=== PATIENT | female | born 1955 | race Caucasian/White ===

== ENCOUNTER 2020-09-23 07:03 | Observation (INO) | payer MEDICARE, OTHER ==
[2020-09-23] MEDS ORDERED: Sodium Chloride 0.9% 1000 ML 1,000 ML IV STA (07:43)
[2020-09-23] MEDS ORDERED: Zofran 4 MG/2 ML VIAL IV ONE (07:43)
--- NOTE | 2020-09-23 07:54 | ERPHSYRPT ---
- History of Present Illness Time Seen by Provider: 09/23/20 07:30 Historian: patient, family Exam Limitations: no limitations Patient Subjective Stated Complaint: Pt has episodes of hyperemesis and has now been vomiting for the past 3-4 days Triage Nursing Assessment: Pt brought to the ED by her , hypertensive, denies pain, pulses normal, abdomen non tender, doesn't appear to be in any distress Physician History: This is a 65-year-old white female who has had episodes in the distant past intermittently of hyperemesis. She has known gastroesophageal reflux disease and a very small hiatal hernia that was diagnosed approximately 4 years ago. She is a patient of Dr. Butler. In the last 4 to 5 days the patient has had more frequent episodes of spontaneous vomiting. She has a very low level of nausea. She does have Zofran tablets but these are not helping her vomiting. She has no pain. There is a "tickle" in her throat this seems to suddenly bring up a large amount of vomiting. She is feeling weak. In addition, there is associated confusion. She has never had this type of scenario. She has no chest pain. He is not short of breath. She has never had an upper endoscopy performed in the past. She is never seen a medical dir. She does have some burning with these vomiting episodes but not every time. Patient sleeps with 2 pillows under her head. She has not been able to sleep well in the last several days because that these episodes are keeping her up at night. She denies fevers. She denies diarrhea. Patient was seen by her primary care physician the day after her symptoms began. She was started on Norvasc, steroid pack and losartan. She was told that the tickle in her throat may be due to sinus drainage. She also saw Dr. Anderson, a lower school music teacher out of [facility]. Patient is a daily smoker of tobacco Timing/Duration: day(s) (4 to 5 days) Activities at Onset: none Quality: burning Abdominal Pain Onset Location: other (No pain) Pain Radiation: no radiation Severity of Pain-Max: none Severity of Pain-Current: none Associated Symptoms: nausea, vomiting, weakness Previous symptoms: same symptoms as today, recently seen Allergies/Adverse Reactions: No Known Drug Allergies Allergy (Verified 09/23/20 07:20) Home Medications: Amlodipine Besylate 5 mg [Norvasc 5 mg] 5 mg PO DAILY 09/23/20 [History] Ascorbic Acid [Vitamin C] 1,000 mg PO DAILY 09/23/20 [History] Atorvastatin Calcium [Lipitor 40Mg] 40 mg PO DAILY 09/23/20 [History] Desvenlafaxine Succinate [Pristiq ER] 100 mg PO DAILY 09/23/20 [History] Famotidine 20 mg [Pepcid 20 MG] 20 mg PO BID 09/23/20 [History] Levothyroxine Sodium [Synthroid] 25 mcg PO DAILY 09/23/20 [History] Losartan/Hydrochlorothiazide [Losartan-Hctz 100-25 mg Tab] 1 each PO DAILY 09/23/20 [History] Methylprednisolone Packet [Medrol Dosepack] 4 mg PO UD 09/23/20 [History] PANTOPRAZOLE 40 mg Tablet [Protonix 40MG Tablet] 40 mg PO QAM 09/23/20 [History] Temazepam [Restoril] 30 mg PO DAILY 09/23/20 [History] Zinc Gluconate [Zinc] 25 mg PO DAILY 09/23/20 [History] Travel Risk - International Travel Have you traveled outside of the country in past 3 weeks: No - Coronavirus Screening Are you exhibiting any of the following symptoms?: No Close contact with a COVID-19 positive Pt in past 14-21 Days: No - Vaccine Status Have you recieved a Covid-19 vaccination: Yes [employer]: [employer] - Vaccination Dates Date of 2cond Vaccination (if applicable): 06/26/2020 - Review of Systems Constitutional: Weakness Eyes: No Symptoms Ears, Nose, & Throat: No Symptoms Respiratory: No Symptoms Cardiac: No Symptoms Abdominal/Gastrointestinal: Nausea, Vomiting Genitourinary Symptoms: No Symptoms Musculoskeletal: No Symptoms Skin: No Symptoms Neurological: No Symptoms Psychological: No Symptoms Endocrine: No Symptoms Hematologic/Lymphatic: No Symptoms Immunological/Allergic: No Symptoms All Other Systems: Reviewed and Negative - Past Medical History Pertinent Past Medical History: Yes Cardiac History: High Cholesterol, Hypertension Endocrine Medical History: Hypothyroidism GI Medical History: GERD, Hernia Psycho-Social History: Depression - Past Surgical History Past Surgical History: Yes - Social History Smoking Status: Current every day smoker Exposure to second hand smoke: Yes Drug Use: none Patient Lives Alone: No - Female History Hx Now: No - Nursing Vital Signs Nursing Vital Signs: Initial Vital Signs Temperature 98.7 F 09/23/20 07:10 Pulse Rate 93 H 09/23/20 07:10 Blood Pressure 148/90 09/23/20 07:10 O2 Sat by Pulse Oximetry 97 09/23/20 07:10 Pain Scale Pain Intensity 0 - Physical Exam General Appearance: no apparent distress, alert, anxiety Eye Exam: PERRL/EOMI, eyes nml inspection Ears, Nose, Throat Exam: normal ENT inspection, moist mucous membranes Neck Exam: normal inspection, non-tender, supple, full range of motion Respiratory Exam: normal breath sounds, lungs clear, airway intact, No chest tenderness, No respiratory distress Cardiovascular Exam: regular rate/rhythm, normal heart sounds, normal peripheral pulses Gastrointestinal/Abdomen Exam: soft, normal bowel sounds, No tenderness Pelvic Exam: not done Rectal Exam: not done Back Exam: normal inspection, normal range of motion, No CVA tenderness, No vertebral tenderness Extremity Exam: normal inspection, normal range of motion, pelvis stable Neurologic Exam: alert, oriented x 3, cooperative, medical education coordinator II-XII nml as tested, normal mood/affect, nml cerebellar function, nml station & gait, sensation nml Skin Exam: normal color, warm, dry Lymphatic Exam: No adenopathy SpO2 Interpretation: normal SpO2: 97 O2 Delivery: Room Air - Course Nursing assessment & vital signs reviewed: Yes EKG Interpreted by Me: RATE (86), Sinus Rhythm, NORMAL AXIS, LAFB, NORMAL INTERVALS, NORMAL QRS, NORMAL ST-T, Other (No acute ischemic changes. No comparison EKG available) Ordered Tests: Active Orders 24 hr Category Date Time Status EKG-ER Only STAT Care 09/23/20 07:43 Active IV Insertion STAT Care 09/23/20 07:43 Active CHEST WITHOUT CONTRAST [CT] Stat Exams 09/23/20 09:05 Taken NECK WO CONTRAST [CT] Stat Exams 09/23/20 09:05 Taken AMYLASE Stat Lab 09/23/20 07:43 Completed CBC W DIFF Stat Lab 09/23/20 07:43 Completed CMP Stat Lab 09/23/20 07:43 Completed INFLUENZA A+B PANCHO Stat Lab 09/23/20 07:46 Completed LIPASE Stat Lab 09/23/20 07:43 Completed Lactic Acid Stat Lab 09/23/20 07:43 Completed Lactic Acid Stat Lab 09/23/20 10:04 Stop Req Manual Differential NC Stat Lab 09/23/20 07:43 Completed Ness Screen Stat Lab 09/23/20 Completed T4 (Thyroxine) Stat Lab 09/23/20 Completed TROPONIN Q3H Lab 09/23/20 07:45 Completed TROPONIN Q3H Lab 09/23/20 10:45 Ordered TROPONIN Q3H Lab 09/23/20 13:45 Ordered TROPONIN Q3H Lab 09/23/20 16:45 Ordered TROPONIN Q3H Lab 09/23/20 19:45 Ordered TSH [TSH, 3RD Generation] Stat Lab 09/23/20 07:46 Completed UA W/RFX UR CULTURE Stat Lab 09/23/20 07:53 Completed Transfer Order Routine Transfer 09/23/20 Ordered Medication Summary Discontinued Medications Generic Name Dose Route Start Last Admin Trade Name Freq PRN Reason Stop Dose Admin Sodium Chloride 1,000 mls @ 999 mls/hr 09/23/20 07:43 09/23/20 09:44 Sodium Chloride 0.9% 1000 Ml IV 09/23/20 08:43 Infused .Q1H1M STA Infusion Sodium Chloride Confirm 09/23/20 08:10 Sodium Chloride 0.9% 1000 Ml Administered 09/23/20 08:11 Dose 1,000 mls @ ud .ROUTE .STK-MED ONE Ondansetron HCl 4 mg 09/23/20 07:43 09/23/20 08:12 Zofran 4 Mg/2 Ml Vial IV 09/23/20 07:44 4 mg STAT ONE Administration Ondansetron HCl Confirm 09/23/20 08:10 Zofran 4 Mg/2 Ml Vial Administered 09/23/20 08:11 Dose 4 mg .ROUTE .STK-MED ONE Lab/Rad Data: Laboratory Result Diagrams 09/23/20 07:43 09/23/20 07:43 Laboratory Results 09/23/20 09/23/20 09/23/20 Range/Units Unknown Unknown 07:53 WBC (4.0-10.5) K/mm3 RBC (4.1-5.4) M/mm3 Hgb (12.0-16.0) gm/dl Hct (35-47) % MCV (78-100) fl MCH (26-32) pg MCHC (32-36) g/dl RDW (11.5-14.0) % Plt Count (150-450) K/mm3 MPV (7.5-11.0) fl Segmented Neutrophils (36.0-66.0) % Lymphocytes (Manual) (24-44) % Monocytes (Manual) (0.0-12.0) % Platelet Estimate (NORMAL) RBC Morphology Sodium (137-145) mmol/L Potassium (3.5-5.1) mmol/L Chloride (98-107) mmol/L Carbon Dioxide (22-30) mmol/L Anion Gap (5-15) MEQ/L BUN (7-17) mg/dL Creatinine (0.52-1.04) mg/dL Estimated GFR ML/MIN Glucose (74-106) mg/dL Lactic Acid (0.4-2.0) Calcium (8.4-10.2) mg/dL Total Bilirubin (0.2-1.3) mg/dL AST (14-36) U/L ALT (0-35) U/L Alkaline Phosphatase (38-126) U/L Troponin I (0.000-0.034) ng/mL Serum Total Protein (6.3-8.2) g/dL Albumin (3.5-5.0) g/dL Amylase (30-110) U/L Lipase (23-300) U/L Thyroxine (T4) 14.9 H (5.53-10.96) ug/dL TSH 3rd Generation (0.47-4.68) mIU/L Urine Color STRAW (YELLOW) Urine Appearance CLEAR (CLEAR) Urine pH 8.0 (5-6) Ur Specific Callaway 1.002 (1.005-1.025) Urine Protein NEGATIVE (Negative) Urine Ketones NEGATIVE (NEGATIVE) Urine Blood NEGATIVE (0-5) Hunter/ul Urine Nitrite NEGATIVE (NEGATIVE) Urine Bilirubin NEGATIVE (NEGATIVE) Urine Urobilinogen NEGATIVE (0-1) mg/dL Ur Leukocyte Esterase NEGATIVE (NEGATIVE) Urine WBC (Auto) NONE (0-5) /HPF Urine RBC (Auto) NONE (0-2) /HPF U Epithel Cells (Auto) RARE (FEW) /HPF Urine Bacteria (Auto) NONE SEEN (NEGATIVE) /HPF Urine Culture Reflexed NO (NO) Urine Glucose NEGATIVE (NEGATIVE) mg/dL Monoscreen NEGATIVE (Negative) Influenza Type A Ag (NEGATIVE) Influenza Type B Ag (NEGATIVE) 09/23/20 09/23/20 09/23/20 Range/Units 07:46 07:46 07:45 WBC (4.0-10.5) K/mm3 RBC (4.1-5.4) M/mm3 Hgb (12.0-16.0) gm/dl Hct (35-47) % MCV (78-100) fl MCH (26-32) pg MCHC (32-36) g/dl RDW (11.5-14.0) % Plt Count (150-450) K/mm3 MPV (7.5-11.0) fl Segmented Neutrophils (36.0-66.0) % Lymphocytes (Manual) (24-44) % Monocytes (Manual) (0.0-12.0) % Platelet Estimate (NORMAL) RBC Morphology Sodium (137-145) mmol/L Potassium (3.5-5.1) mmol/L Chloride (98-107) mmol/L Carbon Dioxide (22-30) mmol/L Anion Gap (5-15) MEQ/L BUN (7-17) mg/dL Creatinine (0.52-1.04) mg/dL Estimated GFR ML/MIN Glucose (74-106) mg/dL Lactic Acid (0.4-2.0) Calcium (8.4-10.2) mg/dL Total Bilirubin (0.2-1.3) mg/dL AST (14-36) U/L ALT (0-35) U/L Alkaline Phosphatase (38-126) U/L Troponin I < 0.012 (0.000-0.034) ng/mL Serum Total Protein (6.3-8.2) g/dL Albumin (3.5-5.0) g/dL Amylase (30-110) U/L Lipase (23-300) U/L Thyroxine (T4) (5.53-10.96) ug/dL TSH 3rd Generation 5.340 H (0.47-4.68) mIU/L Urine Color (YELLOW) Urine Appearance (CLEAR) Urine pH (5-6) Ur Specific Callaway (1.005-1.025) Urine Protein (Negative) Urine Ketones (NEGATIVE) Urine Blood (0-5) Hunter/ul Urine Nitrite (NEGATIVE) Urine Bilirubin (NEGATIVE) Urine Urobilinogen (0-1) mg/dL Ur Leukocyte Esterase (NEGATIVE) Urine WBC (Auto) (0-5) /HPF Urine RBC (Auto) (0-2) /HPF U Epithel Cells (Auto) (FEW) /HPF Urine Bacteria (Auto) (NEGATIVE) /HPF Urine Culture Reflexed (NO) Urine Glucose (NEGATIVE) mg/dL Monoscreen (Negative) Influenza Type A Ag NEGATIVE (NEGATIVE) Influenza Type B Ag NEGATIVE (NEGATIVE) 09/23/20 09/23/20 09/23/20 Range/Units 07:43 07:43 07:43 WBC 13.3 H (4.0-10.5) K/mm3 RBC 5.65 H (4.1-5.4) M/mm3 Hgb 16.2 H (12.0-16.0) gm/dl Hct 47.1 H (35-47) % MCV 83.4 (78-100) fl MCH 28.7 (26-32) pg MCHC 34.4 (32-36) g/dl RDW 12.9 (11.5-14.0) % Plt Count 463 H (150-450) K/mm3 MPV 8.9 (7.5-11.0) fl Segmented Neutrophils 76 H (36.0-66.0) % Lymphocytes (Manual) 18 L (24-44) % Monocytes (Manual) 6 (0.0-12.0) % Platelet Estimate NORMAL (NORMAL) RBC Morphology NORMAL Sodium 118 L* (137-145) mmol/L Potassium 3.6 (3.5-5.1) mmol/L Chloride 80 L (98-107) mmol/L Carbon Dioxide 26 (22-30) mmol/L Anion Gap 14.6 (5-15) MEQ/L BUN 4 L (7-17) mg/dL Creatinine 0.57 (0.52-1.04) mg/dL Estimated GFR > 60.0 ML/MIN Glucose 112 H (74-106) mg/dL Lactic Acid 1.9 (0.4-2.0) Calcium 9.4 (8.4-10.2) mg/dL Total Bilirubin 0.50 (0.2-1.3) mg/dL AST 41 H (14-36) U/L ALT 42 H (0-35) U/L Alkaline Phosphatase 156 H (38-126) U/L Troponin I (0.000-0.034) ng/mL Serum Total Protein 7.7 (6.3-8.2) g/dL Albumin 4.6 (3.5-5.0) g/dL Amylase 83 (30-110) U/L Lipase 156 (23-300) U/L Thyroxine (T4) (5.53-10.96) ug/dL TSH 3rd Generation (0.47-4.68) mIU/L Urine Color (YELLOW) Urine Appearance (CLEAR) Urine pH (5-6) Ur Specific Callaway (1.005-1.025) Urine Protein (Negative) Urine Ketones (NEGATIVE) Urine Blood (0-5) Hunter/ul Urine Nitrite (NEGATIVE) Urine Bilirubin (NEGATIVE) Urine Urobilinogen (0-1) mg/dL Ur Leukocyte Esterase (NEGATIVE) Urine WBC (Auto) (0-5) /HPF Urine RBC (Auto) (0-2) /HPF U Epithel Cells (Auto) (FEW) /HPF Urine Bacteria (Auto) (NEGATIVE) /HPF Urine Culture Reflexed (NO) Urine Glucose (NEGATIVE) mg/dL Monoscreen (Negative) Influenza Type A Ag (NEGATIVE) Influenza Type B Ag (NEGATIVE) - Progress Progress: unchanged Progress Note: 09/23/20 08:55 Medical decision making: I spoke with Dr. Petty who is covering for the hospital as a hospitalist. He agrees to place the patient in observation. We will obtain a soft tissue neck CT and a chest CAT scan. He does accept the patient into the hospital and placing her in observation 09/23/20 10:09 CAT scan of the neck/soft tissue without contrast shows moderate narrowing of the C3-C4 and C6-C7 disc spaces. Asymmetric increased soft tissue within the left subglottic airway CAT scan of the chest without contrast shows small pericardial effusion versus pericardial thickening. Small hiatal hernia. Minimal groundglass airspace disease within the right upper and lower lung freitas. Discussed with : Cory Counseled pt/family regarding: lab results, diagnosis - Departure Departure Disposition: Observation Clinical Impression: Hyponatremia, Vomiting Condition: Stable Critical Care Time: No Referrals: REAL BUTLER MD [Primary Care Provider] -
[2020-09-23 07:59] LABS: Hematocrit 47.1 % (35-47); Hemoglobin 16.2 gm/dl (12.0-16.0); Mean Cell Volume 83.4 fl (78-100); Mean Corpuscular Hemoglobin 28.7 pg (26-32); Mean Corpuscular Hgb Concent. 34.4 g/dl (32-36); Mean Platelet Volume 8.9 fl (7.5-11.0); Platelet Count 463 K/mm3 (150-450); Red Blood Count 5.65 M/mm3 (4.1-5.4); Red Cell Distribution Width 12.9 % (11.5-14.0); White Blood Count 13.3 K/mm3 (4.0-10.5)
[2020-09-23 08:01] LABS: Appearance CLEAR (CLEAR); Bilirubin NEGATIVE (NEGATIVE); Blood NEGATIVE Ery/ul (0-5); Epithelial Cells RARE /HPF (FEW); Glucose NEGATIVE (NEGATIVE); Ketones NEGATIVE (NEGATIVE); Leukocyte Esterase NEGATIVE (NEGATIVE); Nitrite NEGATIVE (NEGATIVE); Protein,Urine Dip NEGATIVE (Negative); Specific Gravity 1.002 (1.005-1.025); Urobilinogen NEGATIVE mg/dL (0-1)
[2020-09-23 08:04] LABS: Bacteria NONE SEEN /HPF (NEGATIVE)
[2020-09-23 08:08] LABS: ALBUMIN 4.6 g/dL (3.5-5.0); ALKALINE PHOSPHATASE 156 U/L (38-126); AMYLASE 83 U/L (30-110); ANION GAP 14.6 MEQ/L (5-15); BLOOD UREA NITROGEN 4 mg/dL (7-17); CHLORIDE 80 mmol/L (98-107); Calcium 9.4 mg/dL (8.4-10.2); Carbon Dioxide 26 mmol/L (22-30); Creatinine 1 0.57 mg/dL (0.52-1.04); EST GLOMERULAR FILTRATION RATE > 60.0 ML/MIN; Glucose 112 mg/dL (74-106); LIPASE 156 U/L (23-300); Potassium 3.6 mmol/L (3.5-5.1); SGOT/AST 41 U/L (14-36); SGPT/ALT 42 U/L (0-35); Total Protein 7.7 g/dL (6.3-8.2)
[2020-09-23 08:10] LABS: SODIUM 118 mmol/L (137-145)
[2020-09-23] MEDS ORDERED: Zofran 4 MG/2 ML VIAL ONE (08:10)
[2020-09-23] MEDS ORDERED: Sodium Chloride 0.9% 1000 ML 1,000 ML ONE (08:10)
[2020-09-23 08:32] LABS: Lymphocytes 18 % (24-44); Monocyte 6 % (0.0-12.0); Neutrophils 76 % (36.0-66.0); Platelet Estimate NORMAL (NORMAL); Total Cells Counted 100
[2020-09-23 08:37] LABS: INFLUENZA A NEGATIVE (NEGATIVE); INFLUENZA B NEGATIVE (NEGATIVE)
[2020-09-23] MEDS ORDERED: Zofran 4 MG/2 ML VIAL IV PRN (11:42)
[2020-09-23] MEDS ORDERED: TYLENOL 325 MG PO PRN (11:42)
[2020-09-23] MEDS: Sodium Chloride 0.9% 1000 ML 1,000 ML IV SCH (13:59)
[2020-09-23] MEDS: Robitussin AC Syrup Unit Dose Cup PO PRN ×2 (14:01→20:09)
--- NOTE | 2020-09-23 19:10 | XRAY ---
Indication: Dysphagia. Choking when supine. Nausea and vomiting. Multiple contiguous axial images obtained through the chest without contrast. Comparison: None Lungs are inflated with minimal scattered fibrosis/scarring and minimal bilateral dependent atelectasis. No suspicious pulmonary mass, infiltrate, consolidation, or effusion. Heart not enlarged with mild anterior pericardial effusion/thickening. Aorta is normal in course and caliber. A few tiny mediastinal calcified nodes. No pathologic mediastinal lymphadenopathy. Small hiatal hernia. Bony thorax intact with minimal degenerative changes throughout the spine. Limited upper abdomen including adrenal glands are unremarkable. Impression: 1. Mild anterior pericardial effusion/thickening better evaluated with echocardiogram. 2. Incidental scattered fibrosis/scarring, small hiatal hernia, and old granulomatous disease. Comment: Preliminary interpretation was made by [facility]. No critical discrepancy.
--- NOTE | 2020-09-23 19:11 | XRAY ---
Indication: Dysphagia. Choking when supine. Nausea and vomiting. Multiple contiguous axial images obtained through the neck without contrast. Comparison: None There are multiple bilateral dental amalgams producing beam artifact limiting these levels. There is asymmetric increased soft tissue within the left subglottic airway. Remaining supra and infraglottic airway widely patent. Normal epiglottis. Parotid and submandibular glands are bilaterally symmetric. No pathologic cervical/supraclavicular lymphadenopathy. Thyroid gland unremarkable. Underlying cervical spine intact with minimal multilevel endplate spurring. Base of the brain unremarkable. CT chest reported separately. Impression: 1. Asymmetric increased soft tissue within the left subglottic airway better evaluated with direct laryngoscopy. 2. Minimal multilevel degenerative changes. 3. Remaining CT neck without contrast exam is negative. Comment: Preliminary interpretation was made by [facility]. No critical discrepancy.
[2020-09-23] MEDS: LIPITOR 40MG PO SCH (20:09)
[2020-09-23] MEDS: BENADRYL 25 MG CAPSULE PO PRN (20:09)
[2020-09-23] MEDS: NORVASC 5 MG PO SCH (20:10)
[2020-09-23] MEDS: Restoril 15 MG PO SCH (20:10)
[2020-09-23] MEDS: VITAMIN D PO SCH (20:10)
[2020-09-23] MEDS: Pepcid 20 MG PO SCH (20:10)
[2020-09-23] MEDS ORDERED: NON-FORMULARY ITEM (Cholecalciferol (Vitamin D3) [Vitamin D3] 1,000 UNIT) PO SCH (22:00)
[2020-09-23] MEDS ORDERED: TEMAZEPAM 30 MG PO SCH (22:00)
[2020-09-24 05:40] LABS: Hematocrit 44.4 % (35-47); Hemoglobin 14.6 gm/dl (12.0-16.0); Mean Cell Volume 87.7 fl (78-100); Mean Corpuscular Hemoglobin 28.9 pg (26-32); Mean Corpuscular Hgb Concent. 32.9 g/dl (32-36); Mean Platelet Volume 8.8 fl (7.5-11.0); Platelet Count 376 K/mm3 (150-450); Red Blood Count 5.06 M/mm3 (4.1-5.4); Red Cell Distribution Width 13.4 % (11.5-14.0); White Blood Count 9.9 K/mm3 (4.0-10.5)
[2020-09-24 06:06] LABS: ALBUMIN 3.6 g/dL (3.5-5.0); ALKALINE PHOSPHATASE 114 U/L (38-126); ANION GAP 6.4 MEQ/L (5-15); BLOOD UREA NITROGEN 5 mg/dL (7-17); CHLORIDE 99 mmol/L (98-107); Calcium 9.1 mg/dL (8.4-10.2); Carbon Dioxide 31 mmol/L (22-30); Creatinine 1 0.66 mg/dL (0.52-1.04); EST GLOMERULAR FILTRATION RATE > 60.0 ML/MIN; Glucose 83 mg/dL (74-106); Potassium 4.5 mmol/L (3.5-5.1); SGOT/AST 33 U/L (14-36); SGPT/ALT 33 U/L (0-35); SODIUM 132 mmol/L (137-145); Total Protein 6.2 g/dL (6.3-8.2)
[2020-09-24 08:12] LABS: BAND 2 % (0.0-2.0); Basophil 1 % (0.0-1.0); Eosinophil 1 % (0.00-3.0); Lymphocytes 43 % (24-44); Monocyte 7 % (0.0-12.0); Neutrophils 46 % (36.0-66.0); Platelet Estimate NORMAL (NORMAL); Total Cells Counted 100
--- NOTE | 2020-09-24 08:14 | PCM.HP ---
History of Present Illness - Chief Complaint Chief Complaint: Hyponatremia; vomiting; weakness History of Present Illness: is a 65 year old female with a longstanding problem of choking and coughing with vomiting, it has been much worse in the last few weeks. she has been treated for a sinus infection on multiple occasions with no improvement, her sodium was low in ER, she has a longstanding history of smoking. she is feeling better after fluids. - Review of Systems Constitutional: No Fever, No Chills Respiratory: Cough Abdominal/Gastrointestinal: Nausea, Vomiting Skin: No Rash All Other Systems: Reviewed and Negative Medications & Allergies Home Medications: Home Medication List Amlodipine Besylate 5 mg [Norvasc 5 mg] 5 mg PO HS 09/23/20 [History Confirmed 09/23/20] Ascorbic Acid [Vitamin C] 1,000 mg PO DAILY 09/23/20 [History Confirmed 09/23/20] Atorvastatin Calcium [Lipitor 40Mg] 40 mg PO HS 09/23/20 [History Confirmed 09/23/20] Cholecalciferol (Vitamin D3) [Vitamin D3] 1,000 unit PO HS 09/23/20 [History Confirmed 09/23/20] Desvenlafaxine Succinate [Pristiq ER] 100 mg PO DAILY 09/23/20 [History Confirmed 09/23/20] Famotidine 20 mg [Pepcid 20 MG] 40 mg HS 09/23/20 [History Confirmed 09/23/20] Hydrochlorothiazide 12.5 mg PO DAILY 09/23/20 [History Confirmed 09/23/20] Lactobacillus Acidophilus [Acidophilus] 1 each PO DAILY 09/23/20 [History Confirmed 09/23/20] Levothyroxine Sodium [Synthroid] 25 mcg PO DAILY 09/23/20 [History Confirmed 09/23/20] Losartan Potassium 25 mg PO DAILY 09/23/20 [History Confirmed 09/23/20] Methylprednisolone Packet [Medrol Dosepack] 4 mg PO UD 09/23/20 [History Confirmed 09/23/20] PANTOPRAZOLE 40 mg Tablet [Protonix 40MG Tablet] 40 mg PO QAM 09/23/20 [History Confirmed 09/23/20] Temazepam [Restoril] 30 mg PO HS 09/23/20 [History Confirmed 09/23/20] Zinc Gluconate [Zinc] 25 mg PO DAILY 09/23/20 [History Confirmed 09/23/20] diphenhydrAMINE HCL [Benadryl] 50 mg PO HS PRN 09/23/20 [History Confirmed 09/23/20] Allergies/Adverse Reactions: Allergies Allergy/AdvReac Type Severity Reaction Status Date / Time No Known Drug Allergies Allergy Verified 09/23/20 07:20 - Past Medical History Past Medical History: Yes Neurological History: No Pertinent History ENT History: Cataracts Cardiac History: Arrhythmia, High Cholesterol, Hypertension Respiratory History: No Pertinent History Endocrine Medical History: Hypothyroidism Musculoskelatal History: Fractures GI Medical History: GERD, Hernia Pyscho-Social History: Anxiety, Depression, Panic Disorder Reproductive Disorders: No Pertinent History Comment: some PVC's; bilat wrist Fxs 2017; anemia - Female History Are you now?: No - Past Surgical History Past Surgical History: Yes Female Surgical History: Other Other Surgical History: cyst removed in right breast - Social History Smoking Status: Current every day smoker How long have you smoked: "30 years" Exposure to second hand smoke: Yes Alcohol: Rarely Drug Use: none - Physical Exam Vital Signs: Vital Signs - 24 hr Temp Pulse Resp BP Pulse Ox 09/24/20 04:00 98.2 F 70 18 104/58 95 09/24/20 02:00 18 09/24/20 00:00 98.4 F 86 18 106/54 93 L 09/23/20 22:00 20 09/23/20 20:10 98.5 F 81 20 136/66 94 L 09/23/20 16:00 95.2 F 81 18 118/55 96 09/23/20 13:36 96.2 F 86 18 117/61 90 L 09/23/20 10:16 85 136/72 93 L 09/23/20 10:15 97 09/23/20 08:14 85 138/72 93 L General Appearance: no apparent distress, alert Neurologic Exam: alert, oriented x 3, cooperative, normal mood/affect, nml cerebellar function, nml station & gait, sensation nml, No motor deficits Neck Exam: normal inspection, non-tender, supple, full range of motion Respiratory Exam: normal breath sounds, lungs clear, No respiratory distress Cardiovascular Exam: regular rate/rhythm, normal heart sounds, normal peripheral pulses Gastrointestinal/Abdomen Exam: soft, normal bowel sounds, No tenderness, No mass Extremity Exam: normal inspection, normal range of motion, pelvis stable Results - Labs Lab/Micro Results: Lab Results-Last 24 Hours 09/23/20 09/23/20 09/23/20 Range/Units 07:43 07:45 07:46 WBC (4.0-10.5) K/mm3 RBC (4.1-5.4) M/mm3 Hgb (12.0-16.0) gm/dl Hct (35-47) % MCV (78-100) fl MCH (26-32) pg MCHC (32-36) g/dl RDW (11.5-14.0) % Plt Count (150-450) K/mm3 MPV (7.5-11.0) fl Segmented Neutrophils 76 H (36.0-66.0) % Lymphocytes (Manual) 18 L (24-44) % Monocytes (Manual) 6 (0.0-12.0) % Platelet Estimate NORMAL (NORMAL) RBC Morphology NORMAL Sodium (137-145) mmol/L Potassium (3.5-5.1) mmol/L Chloride (98-107) mmol/L Carbon Dioxide (22-30) mmol/L Anion Gap (5-15) MEQ/L BUN (7-17) mg/dL Creatinine (0.52-1.04) mg/dL Estimated GFR ML/MIN Glucose (74-106) mg/dL Calcium (8.4-10.2) mg/dL Total Bilirubin (0.2-1.3) mg/dL AST (14-36) U/L ALT (0-35) U/L Alkaline Phosphatase (38-126) U/L Troponin I < 0.012 (0.000-0.034) ng/mL Serum Total Protein (6.3-8.2) g/dL Albumin (3.5-5.0) g/dL Thyroxine (T4) (5.53-10.96) ug/dL TSH 3rd Generation (0.47-4.68) mIU/L Monoscreen (Negative) Influenza Type A Ag NEGATIVE (NEGATIVE) Influenza Type B Ag NEGATIVE (NEGATIVE) SARS-CoV-2 (PCR) (NEGATIVE) 06/06/21 06/06/21 06/06/21 Range/Units 07:46 09:37 10:40 WBC (4.0-10.5) K/mm3 RBC (4.1-5.4) M/mm3 Hgb (12.0-16.0) gm/dl Hct (35-47) % MCV (78-100) fl MCH (26-32) pg MCHC (32-36) g/dl RDW (11.5-14.0) % Plt Count (150-450) K/mm3 MPV (7.5-11.0) fl Segmented Neutrophils (36.0-66.0) % Lymphocytes (Manual) (24-44) % Monocytes (Manual) (0.0-12.0) % Platelet Estimate (NORMAL) RBC Morphology Sodium (137-145) mmol/L Potassium (3.5-5.1) mmol/L Chloride (98-107) mmol/L Carbon Dioxide (22-30) mmol/L Anion Gap (5-15) MEQ/L BUN (7-17) mg/dL Creatinine (0.52-1.04) mg/dL Estimated GFR ML/MIN Glucose (74-106) mg/dL Calcium (8.4-10.2) mg/dL Total Bilirubin (0.2-1.3) mg/dL AST (14-36) U/L ALT (0-35) U/L Alkaline Phosphatase (38-126) U/L Troponin I < 0.012 (0.000-0.034) ng/mL Serum Total Protein (6.3-8.2) g/dL Albumin (3.5-5.0) g/dL Thyroxine (T4) (5.53-10.96) ug/dL TSH 3rd Generation 5.340 H (0.47-4.68) mIU/L Monoscreen (Negative) Influenza Type A Ag (NEGATIVE) Influenza Type B Ag (NEGATIVE) SARS-CoV-2 (PCR) NEGATIVE (NEGATIVE) 09/23/20 09/23/20 09/23/20 Range/Units 13:50 16:56 19:32 WBC (4.0-10.5) K/mm3 RBC (4.1-5.4) M/mm3 Hgb (12.0-16.0) gm/dl Hct (35-47) % MCV (78-100) fl MCH (26-32) pg MCHC (32-36) g/dl RDW (11.5-14.0) % Plt Count (150-450) K/mm3 MPV (7.5-11.0) fl Segmented Neutrophils (36.0-66.0) % Lymphocytes (Manual) (24-44) % Monocytes (Manual) (0.0-12.0) % Platelet Estimate (NORMAL) RBC Morphology Sodium (137-145) mmol/L Potassium (3.5-5.1) mmol/L Chloride (98-107) mmol/L Carbon Dioxide (22-30) mmol/L Anion Gap (5-15) MEQ/L BUN (7-17) mg/dL Creatinine (0.52-1.04) mg/dL Estimated GFR ML/MIN Glucose (74-106) mg/dL Calcium (8.4-10.2) mg/dL Total Bilirubin (0.2-1.3) mg/dL AST (14-36) U/L ALT (0-35) U/L Alkaline Phosphatase (38-126) U/L Troponin I < 0.012 < 0.012 < 0.012 (0.000-0.034) ng/mL Serum Total Protein (6.3-8.2) g/dL Albumin (3.5-5.0) g/dL Thyroxine (T4) (5.53-10.96) ug/dL TSH 3rd Generation (0.47-4.68) mIU/L Monoscreen (Negative) Influenza Type A Ag (NEGATIVE) Influenza Type B Ag (NEGATIVE) SARS-CoV-2 (PCR) (NEGATIVE) 09/23/20 09/23/20 09/24/20 Range/Units Unknown Unknown 05:10 WBC 9.9 (4.0-10.5) K/mm3 RBC 5.06 (4.1-5.4) M/mm3 Hgb 14.6 (12.0-16.0) gm/dl Hct 44.4 (35-47) % MCV 87.7 (78-100) fl MCH 28.9 (26-32) pg MCHC 32.9 (32-36) g/dl RDW 13.4 (11.5-14.0) % Plt Count 376 (150-450) K/mm3 MPV 8.8 (7.5-11.0) fl Segmented Neutrophils (36.0-66.0) % Lymphocytes (Manual) (24-44) % Monocytes (Manual) (0.0-12.0) % Platelet Estimate (NORMAL) RBC Morphology Sodium (137-145) mmol/L Potassium (3.5-5.1) mmol/L Chloride (98-107) mmol/L Carbon Dioxide (22-30) mmol/L Anion Gap (5-15) MEQ/L BUN (7-17) mg/dL Creatinine (0.52-1.04) mg/dL Estimated GFR ML/MIN Glucose (74-106) mg/dL Calcium (8.4-10.2) mg/dL Total Bilirubin (0.2-1.3) mg/dL AST (14-36) U/L ALT (0-35) U/L Alkaline Phosphatase (38-126) U/L Troponin I (0.000-0.034) ng/mL Serum Total Protein (6.3-8.2) g/dL Albumin (3.5-5.0) g/dL Thyroxine (T4) 14.9 H (5.53-10.96) ug/dL TSH 3rd Generation (0.47-4.68) mIU/L Monoscreen NEGATIVE (Negative) Influenza Type A Ag (NEGATIVE) Influenza Type B Ag (NEGATIVE) SARS-CoV-2 (PCR) (NEGATIVE) 09/24/20 Range/Units 05:10 WBC (4.0-10.5) K/mm3 RBC (4.1-5.4) M/mm3 Hgb (12.0-16.0) gm/dl Hct (35-47) % MCV (78-100) fl MCH (26-32) pg MCHC (32-36) g/dl RDW (11.5-14.0) % Plt Count (150-450) K/mm3 MPV (7.5-11.0) fl Segmented Neutrophils (36.0-66.0) % Lymphocytes (Manual) (24-44) % Monocytes (Manual) (0.0-12.0) % Platelet Estimate (NORMAL) RBC Morphology Sodium 132 L D (137-145) mmol/L Potassium 4.5 D (3.5-5.1) mmol/L Chloride 99 D (98-107) mmol/L Carbon Dioxide 31 H (22-30) mmol/L Anion Gap 6.4 (5-15) MEQ/L BUN 5 L (7-17) mg/dL Creatinine 0.66 (0.52-1.04) mg/dL Estimated GFR > 60.0 ML/MIN Glucose 83 (74-106) mg/dL Calcium 9.1 (8.4-10.2) mg/dL Total Bilirubin 0.40 (0.2-1.3) mg/dL AST 33 (14-36) U/L ALT 33 (0-35) U/L Alkaline Phosphatase 114 (38-126) U/L Troponin I (0.000-0.034) ng/mL Serum Total Protein 6.2 L (6.3-8.2) g/dL Albumin 3.6 (3.5-5.0) g/dL Thyroxine (T4) (5.53-10.96) ug/dL TSH 3rd Generation (0.47-4.68) mIU/L Monoscreen (Negative) Influenza Type A Ag (NEGATIVE) Influenza Type B Ag (NEGATIVE) SARS-CoV-2 (PCR) (NEGATIVE) - Radiology Impressions Radiology Exams & Impressions: Radiology Procedures Category Date Time Status CHEST WITHOUT CONTRAST [CT] Stat Exams 09/23/20 09:05 Completed NECK WO CONTRAST [CT] Stat Exams 09/23/20 09:05 Completed Assessment/Plan (1) Hyponatremia Current Visit: Yes Status: Acute Assessment & Plan: improved with hydration, likely from excessive vomiting Code(s): E87.1 - HYPO-OSMOLALITY AND HYPONATREMIA (2) Subglottic inflammation Current Visit: Yes Status: Acute Assessment & Plan: abnormal ct shows soft tissue assymmetry in left subglottic airway, will consult surgery for consideration of laryngoscopy/bronch to further evaluate Code(s): J04.0 - ACUTE LARYNGITIS (3) Vomiting Current Visit: Yes Status: Acute Code(s): R11.10 - VOMITING, UNSPECIFIED
[2020-09-24] MEDS: Vitamin C 500 MG PO SCH (08:30)
[2020-09-24] MEDS: PRISTIQ ER PO SCH (08:30)
[2020-09-24] MEDS: Protonix 40MG Tablet PO SCH (08:31)
[2020-09-24] MEDS: Acidophilus TABLET PO SCH (08:31)
[2020-09-24] MEDS: Cozaar 50 MG PO SCH (08:31)
[2020-09-24] MEDS: SYNTHROID 25 MCG PO SCH (08:31)
[2020-09-24] MEDS: Zinc Gluconate 50 MG PO SCH (08:32)
[2020-09-24] MEDS: Sodium Chloride 0.9% 1000 ML 1,000 ML IV SCH (09:46)
[2020-09-24] MEDS ORDERED: LACTOBACILLUS ACIDOPHILUS PO SCH (10:00)
[2020-09-24] MEDS ORDERED: NON-FORMULARY ITEM (Losartan Potassium [Losartan Potassium] 25 MG) PO SCH (10:00)
[2020-09-24] MEDS ORDERED: NON-FORMULARY ITEM (Ascorbic Acid [Vitamin C] 1,000 MG) PO SCH (10:00)
[2020-09-24] MEDS ORDERED: NON-FORMULARY ITEM (Desvenlafaxine Succinate [Pristiq] 100 MG) PO SCH (10:00)
[2020-09-24] MEDS ORDERED: Lactated Ringers 1,000 ML IV SCH (12:00)
[2020-09-24] MEDS ORDERED: DIPRIVAN 200 MG/20 ML IV ONE (14:35)
[2020-09-24] MEDS ORDERED: Versed 2 MG/2 ML Injection ONE (14:36)
--- NOTE | 2020-09-24 15:38 | CONS ---
CONSULT DATE: 09/24/2020 HISTORY: This patient was seen for Dr. Talavera who is director international for our group today. It sounds like the patient came in yesterday. A 65 year-old female who had some nausea and vomiting, had some low sodium. That was corrected and her nausea and vomiting is better. She said she has had a tickle in her throat that has been going on for some time. She has some intermittent hyperemesis. She had a small hiatal hernia and some reflux in the past. She had endoscopy several years ago but none recently. She denies any issue of radiation to her head or neck. She denies any family history of lymphoma or head/neck cancer. PAST MEDICAL HISTORY: She has had some hypertension, hyperlipidemia and hypothyroidism. She had tried recently some Medrol Dosepak and some steroid treatments. She has not had any antibiotics. She had depression in the past. PAST SURGICAL HISTORY: She had upper endoscopy several years ago. MEDICATIONS: Amlodipine, ascorbic acid, atorvastatin, Pristiq, Pepcid, Synthroid, losartan, Medrol Dosepak recently, Protonix, Restoril, zinc. She has had COVID vaccine in the past. ALLERGIES: NKDA. SOCIAL HISTORY: Smoker. REVIEW OF SYSTEMS: Fourteen systems reviewed pertinent for as noted above. She wears glasses. No chest pain or palpitations. Other systems negative or noncontributory as above and per preadmission questionnaire. PHYSICAL EXAMINATION: GENERAL: No acute distress. HEENT: Sclera nonicteric. NECK: No JVD. CHEST: Equal excursion, nonlabored breathing. CVS: Regular rate and rhythm. ABDOMEN: Soft. EXTREMITIES: No edema. NEURO: Alert, moving extremities symmetrically. PSYCH: Appropriate mood and affect. IMPRESSION: Some dysphasia, had some history of nausea and vomiting. She had a CT scan showed some swelling left subglottic airway otherwise small hernia. She has some ground-glass airspace disease upper and lower lung freitas, small granulomatous calcified lymph nodes in the past. Apparently according to the staff, the bronchoscope is on recall here so bronchoscopy is not available. She was supposed to see Dr. Blair in [place] or Dr. Alfredo pires in [place] in the near future. Discussed options. Plan to go ahead and do an upper endoscopy here although we do not have a bronchoscope, could look at the esophagus to see if there is any esophagitis, inflammation, gastritis, peptic ulcer disease or other etiology. General risk of bleeding or infection, risk of bowel injury or perforation possibly requiring further procedure. Risk of missed or nondiagnosis or inability to diagnose the etiology of her symptoms. She may still require ENT evaluation if she plans on setting up for it. She understands and agrees to the plan, will proceed with EGD possible biopsy when OR time available. If she has anything unusual that needs dilatation will consider that but at this time definitely will do a diagnostic EGD at this point. Again, this patient was seen for Dr. Neeraj Talavera who is director international for our group today.
[2020-09-24] MEDS: Restoril 15 MG PO SCH (20:02)
[2020-09-24] MEDS: VITAMIN D PO SCH (20:02)
[2020-09-24] MEDS: NORVASC 5 MG PO SCH (20:02)
[2020-09-24] MEDS: Pepcid 20 MG PO SCH (20:03)
[2020-09-24] MEDS: LIPITOR 40MG PO SCH (20:03)
[2020-09-24] MEDS: BENADRYL 25 MG CAPSULE PO PRN (20:03)
[2020-09-25 05:12] LABS: Hematocrit 42.9 % (35-47); Hemoglobin 13.8 gm/dl (12.0-16.0); Mean Cell Volume 89.4 fl (78-100); Mean Corpuscular Hemoglobin 28.8 pg (26-32); Mean Corpuscular Hgb Concent. 32.2 g/dl (32-36); Platelet Count 362 K/mm3 (150-450); Red Cell Distribution Width 13.5 % (11.5-14.0); White Blood Count 11.1 K/mm3 (4.0-10.5)
[2020-09-25 05:42] LABS: ALBUMIN 3.2 g/dL (3.5-5.0); ALKALINE PHOSPHATASE 115 U/L (38-126); BLOOD UREA NITROGEN 5 mg/dL (7-17); CHLORIDE 103 mmol/L (98-107); Calcium 8.4 mg/dL (8.4-10.2); Carbon Dioxide 25 mmol/L (22-30); Creatinine 1 0.54 mg/dL (0.52-1.04); EST GLOMERULAR FILTRATION RATE > 60.0 ML/MIN; Glucose 95 mg/dL (74-106); SGOT/AST 36 U/L (14-36); SGPT/ALT 32 U/L (0-35); SODIUM 133 mmol/L (137-145); Total Protein 5.7 g/dL (6.3-8.2)
[2020-09-25 07:59] VITALS: BP 145/72; PULSE 71; O2SAT 95
--- NOTE | 2020-09-25 09:23 | OP ---
SURGERY DATE/TIME: 09/24/2020 1435 PREOPERATIVE DIAGNOSES: 1) History of dysphasia. 2) History of some subglottic laryngeal asymmetry, left greater than right. POSTOPERATIVE DIAGNOSES: 1) Minimal to mild gastritis. 2) Small hiatal hernia. 3) Distal erosive esophagitis. 4) Some soft tissue thickening left laryngeal area in need of ENT evaluation input. PROCEDURES: EGD with cold biopsy of antrum, cold biopsy distal esophagus to evaluate for esophagitis. SURGEON: Dr. Kashif Silveira. ANESTHESIA: MAC. ESTIMATED BLOOD LOSS: Minimal. INDICATIONS: As noted above. Risks and benefits explained in detail and not limited to and consent obtained. DESCRIPTION OF PROCEDURE AND FINDINGS: The patient is taken to the endoscopy room. MAC anesthesia induced. After official time out and no disagreement with planned procedure, a bite block positioned. Video gastroscope inserted and passed over the back of the tongue. Down in the top part of the epiglottis is unremarkable. There might have been a little edema where the epiglottic area and vocal cords. She had a little bit of cough and spasm during that time. There was some thickening on the left side of subglottic laryngeal area. It seemed to be on the left. Otherwise the scope easily went down the esophagus. There did not appear to be any tight narrowing to warrant some dilatation right at this moment. There was no evidence of any large esophageal mass on endoscopic view. Down in the distal esophagus she had 1 cm to 1.5 cm of some superficial erosions, some distal esophagitis, thin superficial erosions consistent with some distal esophagitis. She did have a very small hiatal hernia. The scope passed through the patent pylorus to the third portion of the duodenum. Third, second and first portion of the duodenum grossly unremarkable. No signs of any obvious masses or mucosal abnormality. The scope pulled back into the stomach. She did have some mild gastric erythema and possibly some minimal early gastritis. Cold biopsy taken to evaluate for Helicobacter pylori. Good hemostasis noted. On retroflex there was a very small hiatal hernia. There were no signs of any large polyps or masses. No gross ulcers. The scope is pulled back into the distal esophagus just above the tiny hiatal hernia. There were two or three linear thin superficial erosions consistent with erosive esophagitis. Cold biopsy taken for further evaluation. There is no gross evidence of Suresh's. No signs of any obvious mass in the area. The scope was carefully withdrawn. No signs of any large masses in the esophagus. The scope is withdrawn. The patient tolerated the procedure well. Findings were discussed with the family out in the waiting area. She was supposed to see ENT. It is felt they definitely need to evaluate this asymmetric thickening likely with some direct laryngoscopy but get their opinion as this is more of an ENT field.
[2020-09-25 09:50] LABS: Lymphocytes 16 % (24-44); Monocyte 4 % (0.0-12.0); Neutrophils 80 % (36.0-66.0); Total Cells Counted 100
[2020-09-25 09:51] LABS: Platelet Estimate NORMAL (NORMAL)
--- NOTE | 2020-09-25 10:25 | PCM.DS ---
Discharge Summary Date of Admission: 09/23/20 11:39 Admitting Physician: MICHEAL GONZALEZ Consults: Consults on Case 09/23/20 11:42 Nutritional Consult ROUTINE 09/24/20 08:09 Consult Surgery ROUTINE Primary Care Provider: REAL BUTLER Allergies Allergies No Known Drug Allergies Allergy (Verified 09/23/20 07:20) Hospital Summary - Hospital Course Hospital Course: patient was admitted with hyponatremia, persistent nausea and vomiting with a history of hiatal hernia/gerd and chronic sinus drainage. she has been treated multiple times as an outpatient with no relief. surgery consulted and performed EGD, initially ct in ER showed subglottic narrowing, chest ct was negative, done due to hyponatremia and cigarette smoking with cough and gagging. egd showed mild gastritis, hiatal hernia and erosive esophagitis. there was thickening of epiglottic region but no overt mass. - Vitals & Intake/Output Vital Signs: Vital Signs Temperature 98.0 F 09/25/20 07:00 Pulse Rate 71 09/25/20 07:00 Respiratory Rate 16 09/25/20 07:00 Blood Pressure 145/72 09/25/20 07:00 O2 Sat by Pulse Oximetry 95 09/25/20 07:00 Intake & Output: Intake & Output 09/22/20 09/23/20 09/24/20 09/25/20 11:59 11:59 11:59 11:59 Intake Total 1450 2356 Output Total 4050 Balance 1450 -1694 Weight 83.461 kg 84.8 kg - Lab Result Diagrams: 09/25/20 04:00 09/25/20 04:00 Lab Results-Last 24 Hrs: Lab Results-Last 24 Hours 09/25/20 09/25/20 Range/Units 04:00 04:00 WBC 11.1 H (4.0-10.5) K/mm3 RBC 4.80 (4.1-5.4) M/mm3 Hgb 13.8 (12.0-16.0) gm/dl Hct 42.9 (35-47) % MCV 89.4 (78-100) fl MCH 28.8 (26-32) pg MCHC 32.2 (32-36) g/dl RDW 13.5 (11.5-14.0) % Plt Count 362 (150-450) K/mm3 MPV 9.0 (7.5-11.0) fl Segmented Neutrophils 80 H (36.0-66.0) % Lymphocytes (Manual) 16 L (24-44) % Monocytes (Manual) 4 (0.0-12.0) % Platelet Estimate NORMAL (NORMAL) RBC Morphology NORMAL Sodium 133 L (137-145) mmol/L Potassium 4.0 (3.5-5.1) mmol/L Chloride 103 (98-107) mmol/L Carbon Dioxide 25 (22-30) mmol/L Anion Gap 10.0 (5-15) MEQ/L BUN 5 L (7-17) mg/dL Creatinine 0.54 (0.52-1.04) mg/dL Estimated GFR > 60.0 ML/MIN Glucose 95 (74-106) mg/dL Calcium 8.4 (8.4-10.2) mg/dL Total Bilirubin 0.20 (0.2-1.3) mg/dL AST 36 (14-36) U/L ALT 32 (0-35) U/L Alkaline Phosphatase 115 (38-126) U/L Serum Total Protein 5.7 L (6.3-8.2) g/dL Albumin 3.2 L (3.5-5.0) g/dL - Radiology Exams Ordered Rad Exams-Entire Visit: Radiology Procedures Category Date Time Status ECHO W/2D AND DOPPLER [US] Routine Exams 09/24/20 10:53 Taken - Procedures and Test Procedures and Tests throughout Hospitalization: Therapy Orders & Screens 09/23/20 13:57 Smoking Cessation Education ONCE Comment: Diagnosis: Hyponatremia; vomiting; weakness Smoking Status: Current every day smoker How long have you smoked: "30 years" Have you smoked in the past 12 months: Yes Approximately how many cigarettes per day: 20 Do you dip or chew tobacco: No Discharge Exam General Appearance: no apparent distress, alert Respiratory Exam: normal breath sounds, lungs clear, No respiratory distress Cardiovascular Exam: regular rate/rhythm, normal heart sounds Gastrointestinal/Abdomen Exam: soft, No tenderness, No mass Extremity Exam: normal inspection, normal range of motion Skin Exam: normal color, warm, dry Final Diagnosis/Problem List - Final Discharge Diagnosis/Problem (1) Hiatal hernia with gastroesophageal reflux disease and esophagitis Current Visit: Yes Status: Acute Assessment & Plan: increase PPI protonix to 40mg bid due to erosive esphagitis on egd/continue pepcid, discussed small meals, biopsies pending from EGD with Dr Silveira Code(s): K44.9 - DIAPHRAGMATIC HERNIA WITHOUT OBSTRUCTION OR GANGRENE; K21.00 - GASTRO-ESOPHAGEAL REFLUX DIS WITH ESOPHAGITIS, WITHOUT BLEED (2) Chronic sinusitis Current Visit: Yes Status: Acute Assessment & Plan: ENT consult, send home on cefdinir x 14 days and start on zyrtec Code(s): J32.9 - CHRONIC SINUSITIS, UNSPECIFIED (3) Subglottic inflammation Current Visit: Yes Status: Acute Assessment & Plan: ENT consult pending Code(s): J04.0 - ACUTE LARYNGITIS (4) Hyponatremia Current Visit: Yes Status: Acute Assessment & Plan: resolved with fluids, secondary to vomiting but will hold hctz and f/u Code(s): E87.1 - HYPO-OSMOLALITY AND HYPONATREMIA (5) Vomiting Current Visit: Yes Status: Acute Code(s): R11.10 - VOMITING, UNSPECIFIED - Discharge Disposition: Home, Self-Care Condition: Stable Prescriptions: New Cefdinir [Omnicef 300 mg] 300 mg PO BID #28 capsule Cetirizine HCl [Zyrtec] 10 mg PO DAILY #30 tablet Continue Amlodipine Besylate 5 mg [Norvasc 5 mg] 5 mg PO HS Zinc Gluconate [Zinc] 25 mg PO DAILY Famotidine 20 mg [Pepcid 20 MG] 40 mg HS Temazepam [Restoril] 30 mg PO HS Levothyroxine Sodium [Synthroid] 25 mcg PO DAILY Desvenlafaxine Succinate [Pristiq] 100 mg PO DAILY Atorvastatin Calcium [Lipitor 40Mg] 40 mg PO HS Ascorbic Acid [Vitamin C] 1,000 mg PO DAILY Losartan Potassium 25 mg PO DAILY diphenhydrAMINE HCL [Benadryl] 50 mg PO HS PRN PRN Reason: Insomnia Lactobacillus Acidophilus [Acidophilus] 1 each PO DAILY Cholecalciferol (Vitamin D3) [Vitamin D3] 1,000 unit PO HS Changed PANTOPRAZOLE 40 mg Tablet [Protonix 40MG Tablet] 40 mg PO BID #60 tablet Discontinued Methylprednisolone Packet [Medrol Dosepack] 4 mg PO UD Hydrochlorothiazide 12.5 mg PO DAILY Follow up with: DENNIS SILVEIRA [COURTESY STAFF] - 1 Week REAL BUTLER MD [Primary Care Provider] - Dang ARNDT [NON-STAFF PHY W/O PRIVILEGES] - (please schedule in [place] office ALVARADO)
[2020-09-25] MEDS: Acidophilus TABLET PO SCH (10:41)
[2020-09-25] MEDS: PRISTIQ ER PO SCH (10:42)
[2020-09-25] MEDS: Vitamin C 500 MG PO SCH (10:42)
[2020-09-25] MEDS: Protonix 40MG Tablet PO SCH (10:42)
[2020-09-25] MEDS: Zinc Gluconate 50 MG PO SCH (10:42)
[2020-09-25] MEDS: SYNTHROID 25 MCG PO SCH (10:42)
[2020-09-25] MEDS: Cozaar 50 MG PO SCH (10:42)
--- NOTE | 2020-09-27 11:29 | ECHO ---
DATE OF PROCEDURE: 09/24/2020 CLINICAL INFORMATION: Possible pericardial effusion. The M-mode 2D, and Doppler echocardiogram including color flow Doppler shows the left ventricle is normal in size at 3.7 cm. There is no thrombus present. The septal wall thickness is borderline increased at 1.2 cm. The left ventricular posterior wall thickness is normal at 1.1 cm. There is normal contractility of the left ventricle. The ejection fraction is calculated to be 65%. The right ventricle is grossly normal. The left atrium is borderline dilated with a dimension of 4.2 cm. The interatrial septum is intact. The right atrium is normal. The aortic valve opens well. There is no aortic regurgitation. The mitral valve is normal. There is mild tricuspid regurgitation. The right ventricular systolic pressure is calculated to be 43 mm of Mercury. The pulmonic valve is not well visualized. The aortic root is normal at 2.8 cm. There is small anterior and posterior pericardial effusion with no evidence of tamponade. IMPRESSION: 1) SMALL ANTERIOR AND POSTERIOR PERICARDIAL EFFUSION. 2) BORDERLINE CONCENTRIC LEFT VENTRICULAR HYPERTROPHY. 3) NORMAL CONTRACTILITY OF THE LEFT VENTRICLE. 4) MILD TRICUSPID REGURGITATION. 5) MODERATE PULMONARY HYPERTENSION. 6) MILD LEFT ATRIAL DILATATION. 7) SMALL ANTERIOR AND POSTERIOR PERICARDIAL EFFUSION WITH NO EVIDENCE OF CARDIAC TAMPONADE.
== END 2020-09-25 11:22 | disposition home or self-care (01) ==
LOC: ED 07:03 → MED SURG 11:39
PROVIDERS: ADMIT Family Medicine; ATTEND Family Medicine
DX: K44.9 Diaphragmatic hernia without obstruction or gangrene (principal); K20.90 Esophagitis, unspecified without bleeding; K21.9 Gastro-esophageal reflux disease without esophagitis; J38.7 Other diseases of larynx; K29.70 Gastritis, unspecified, without bleeding; R41.0 Disorientation, unspecified; F17.200 Nicotine dependence, unspecified, uncomplicated; Z79.899 Other long term (current) drug therapy; I10 Essential (primary) hypertension; E78.00 Pure hypercholesterolemia, unspecified; E87.1 Hypo-osmolality and hyponatremia; J32.9 Chronic sinusitis, unspecified; Z20.828 Contact with and (suspected) exposure to other viral communicable diseases
CPT/HCPCS: 36000; 36415; 43239; 70490; 71250; 80053; 81001; 82150; 83605; 83690; 84436; 84443; 84484; 85025; 86308; 87400; 93005; 93306; 96360; 96374; 99285; G0378; U0003; 88305; J2250; J2405; J2704; A9270-GY